=== PATIENT | female | born 1965 | race Caucasian/White ===

== ENCOUNTER 2017-03-10 23:44 | Inpatient (IN) | payer OTHER ==
[~2017-03-10] VITALS: Ht 165.1 cm; Wt 69.4 kg
[2017-03-10 23:30] VITALS: BP 164/79
[2017-03-11] MEDS ORDERED: ATOR10TA60 PO (01:53)
[2017-03-11] MEDS ORDERED: CYCL5TAB PO (01:53)
[2017-03-11] MEDS ORDERED: IPRA4AER IH (01:53)
[2017-03-11] MEDS ORDERED: BUDE10.22 IH (01:53)
[2017-03-11 03:00] VITALS: BP 121/59
[2017-03-11 07:17] VITALS: BP 111/71
[2017-03-11 10:58] VITALS: BP 117/67
== END 2017-03-11 12:10 | disposition home or self-care (01) | DRG 313 ==
LOC: 5 NORTH 23:44
PROVIDERS: ADMIT Internal Medicine Hematology & Oncology; ATTEND Internal Medicine Hematology & Oncology
DX: R07.9 Chest pain, unspecified (principal); Z88.8 Allergy status to other drugs, medicaments and biological substances; Z88.2 Allergy status to sulfonamides